=== PATIENT | female | born 1980 | race Hispanic/Latino ===

== ENCOUNTER 2016-07-01 17:47 | Emergency (ER) | payer OTHER ==
[2016-07-01] MEDS ORDERED: Lorazepam 0.5 MG TAB ONE (18:02)
[2016-07-01] MEDS ORDERED: Ondansetron ODT 4 MG TAB ONE (18:02)
[2016-07-01 18:32] LABS: #Eosinphils 0.2 thou/uL (0.0-0.7); #Lymphocytes 1.4 thou/uL (1.20-3.40); #Monocytes 0.3 thou/uL (0.11-0.59); #Neutrophils 4.6 thou/uL (1.40-6.50); %Basophils 0.6 % (0.0-1.0); %Eosinophils 2.7 % (0.0-10.0); %Monocytes 4.4 % (0.0-10.0); Red Blood Cell (RBC) Count 4.55 mill/uL (4.20-5.40); White Blood Cell (WBC) Count 6.5 thou/uL (4.8-10.8)
[2016-07-01 18:44] LABS: ALT (SGPT) 46 U/L (0-55); AST (SGOT) 30 U/L (5-34); Alkaline Phosphatase 63 U/L (40-150); Anion Gap 14 mmol/L (10-20); BUN (Urea Nitrogen) 8 mg/dL (7.0-18.7); Bilirubin, Total 0.2 mg/dL (0.2-1.2); Calc. Creatinine Clearance 0 mL/min (70-130); Calcium 8.8 mg/dL (7.8-10.44); Carbon Dioxide 23 mmol/L (22-29); Chloride 105 mmol/L (98-107); Estimated GFR-MDRD 78; Globulin 2.9 g/dL (2.4-3.5); Protein, Total 6.9 g/dL (6.0-8.3)
[2016-07-01 18:46] LABS: Troponin I 0.014 ng/mL (< 0.028)
[2016-07-01] MEDS ORDERED: AMOXicillin 250 MG CAP ONE (19:14)
--- NOTE | 2016-07-01 22:31 | RAD ---
PORTABLE CHEST 07/01/16 An AP portable film at 1809 is compared with an 03/06/16 study. The heart size is unchanged. The leon gs are clear. There is no congestive change or pleural effusion. The trachea is midline. IMPRESSION: No acute thoracic finding. POS: HOME
== END 2016-07-01 19:18 | disposition home or self-care (01) ==
LOC: BURERS 17:47
DX: K29.70 Gastritis, unspecified, without bleeding (principal); E78.5 Hyperlipidemia, unspecified; F32.9 Major depressive disorder, single episode, unspecified; F17.210 Nicotine dependence, cigarettes, uncomplicated
CPT/HCPCS: 71010; 80053; 82553; 84484; 85025; 85379; 93005; Q0162

== ENCOUNTER 2016-12-10 19:10 | Emergency (ER) | payer OTHER ==
--- NOTE | 2016-12-10 22:52 | RAD ---
RIGHT FOOT THREE VIEWS 12/10/2016 An oblique fracture through the proximal phalanx of the 5th toe is seen. The remainder of the foot appears intact. No periosteal reaction was seen elsewhere. The medial sesamoid of the first MTP patricia int is bipartite, a common variant. IMPRESSION: Nondisplaced oblique fracture of the proximal phalanx of the 5th toe. Code T. POS: HOME
== END 2016-12-10 20:05 | disposition home or self-care (01) ==
LOC: BURERS 19:10
DX: S92.514A Nondisplaced fracture of proximal phalanx of right lesser toe(s), initial encounter for closed fracture (principal); E78.5 Hyperlipidemia, unspecified; F32.9 Major depressive disorder, single episode, unspecified; F41.9 Anxiety disorder, unspecified; F42.9 Obsessive-compulsive disorder, unspecified; F17.210 Nicotine dependence, cigarettes, uncomplicated; W17.2XXA Fall into hole, initial encounter

== ENCOUNTER 2016-12-18 13:18 | Outpatient (CLI) | payer OTHER ==
--- NOTE | 2016-12-18 16:15 | RAD ---
RIGHT FOOT THREE VIEWS: Date: 12-18-16 Comparison: 12-10-16 FINDINGS: The oblique fracture of the proximal phalanx of the little toe is again noted. There has been little pattern changer the interval. There is no change in alignment. No new fractures were seen. IMPRESSION: Little change since 12-10. POS: HOME
== END 2016-12-18 13:19 | disposition home or self-care (01) ==
LOC: BURRAD 13:18
PROVIDERS: ATTEND Family Medicine
DX: S92.514D Nondisplaced fracture of proximal phalanx of right lesser toe(s), subsequent encounter for fracture with routine healing (principal)

== ENCOUNTER 2017-01-15 15:33 | Emergency (ER) | payer OTHER ==
[2017-01-15] MEDS ORDERED: Bacitracin Zinc 1 Packet ONE (15:51)
== END 2017-01-15 16:25 | disposition home or self-care (01) ==
LOC: BURERS 15:33
DX: S61.012A Laceration without foreign body of left thumb without damage to nail, initial encounter (principal); S61.511A Laceration without foreign body of right wrist, initial encounter; E78.2 Mixed hyperlipidemia; F32.9 Major depressive disorder, single episode, unspecified; F41.9 Anxiety disorder, unspecified; F17.210 Nicotine dependence, cigarettes, uncomplicated; Z79.899 Other long term (current) drug therapy; W25.XXXA Contact with sharp glass, initial encounter; Y93.G1 Activity, food preparation and clean up; Y99.0 Civilian activity done for income or pay
CPT/HCPCS: 12001; 90471

== ENCOUNTER 2017-01-28 18:16 | Emergency (ER) | payer OTHER ==
[2017-01-28] MEDS ORDERED: Fluorescein Opthalmic Strip ONE (18:22)
[2017-01-28] MEDS ORDERED: HYDROcodone/Acetaminophen 10/325 mg Tablet ONE (18:57)
== END 2017-01-28 19:26 | disposition home or self-care (01) ==
LOC: BURERS 18:16
DX: Z77.098 Contact with and (suspected) exposure to other hazardous, chiefly nonmedicinal, chemicals (principal); H02.842 Edema of right lower eyelid; H02.841 Edema of right upper eyelid; E78.1 Pure hyperglyceridemia; F17.210 Nicotine dependence, cigarettes, uncomplicated; Z79.899 Other long term (current) drug therapy
CPT/HCPCS: 99283

== ENCOUNTER 2017-04-30 12:38 | Emergency (ER) | payer OTHER, SELFPAY ==
[2017-04-30] MEDS ORDERED: Acetaminophen 500 MG TAB ONE (13:38)
[2017-04-30] MEDS ORDERED: Benzonatate 100 MG CAP ONE (13:38)
[2017-04-30] MEDS ORDERED: Oseltamivir 75 MG CAP ONE (13:38)
== END 2017-04-30 13:49 | disposition home or self-care (01) ==
LOC: BURERS 12:38
DX: J11.1 Influenza due to unidentified influenza virus with other respiratory manifestations (principal); E78.5 Hyperlipidemia, unspecified; F42.9 Obsessive-compulsive disorder, unspecified; F41.9 Anxiety disorder, unspecified; F32.9 Major depressive disorder, single episode, unspecified; F17.210 Nicotine dependence, cigarettes, uncomplicated; Z79.899 Other long term (current) drug therapy
CPT/HCPCS: 99283

== ENCOUNTER 2017-05-18 18:26 | Emergency (ER) | payer SELFPAY ==
[2017-05-18] MEDS ORDERED: Lorazepam 2 MG/ML VIAL ONE (18:59)
== END 2017-05-18 19:22 | disposition home or self-care (01) ==
LOC: BURERS 18:26
DX: F41.9 Anxiety disorder, unspecified (principal); E78.5 Hyperlipidemia, unspecified; H92.03 Otalgia, bilateral; E11.9 Type 2 diabetes mellitus without complications; F17.210 Nicotine dependence, cigarettes, uncomplicated; Z79.899 Other long term (current) drug therapy
CPT/HCPCS: 96372; J2060

== ENCOUNTER 2018-05-01 05:43 | Emergency (ER) | payer SELFPAY ==
[2018-05-01] MEDS ORDERED: Nitroglycerin 0.4 MG TAB (25 Tab Bottle) ONE (06:31)
[2018-05-01] MEDS ORDERED: Ondansetron PF 4 MG/2 ML Vial ONE ×2 (06:31→06:53)
[2018-05-01 06:42] LABS: Albumin 4.3 g/dL (3.5-5.0); Chloride 87 mmol/L (98-107); Sodium 121 mmol/L (136-145)
[2018-05-01 06:46] LABS: #Eosinphils 0.1 thou/uL (0.0-0.7); #Lymphocytes 1.1 thou/uL (1.20-3.40); #Monocytes 0.3 thou/uL (0.11-0.59); #Neutrophils 4.5 thou/uL (1.40-6.50); %Basophils 0.6 % (0.0-1.0); %Eosinophils 1.8 % (0.0-10.0); %Lymphocytes 18.5 % (21.0-51.0); %Monocytes 4.4 % (0.0-10.0); %Neutrophils 74.6 % (42.0-75.0); Hemoglobin 14.4 g/dL (12.0-16.0); Mean Corpuscular HGB CONC 37.5 g/dL (32.0-36.0); Mean Corpuscular Hemoglobin 32.2 pg (27.0-31.0); Mean Corpuscular Volume 85.8 fL (78.0-98.0); Mean Platelet Volume 5.9 fL (7.4-10.4); Platelet Count 235 thou/uL (130-400); RBC Distribution Width 13.4 % (11.5-14.5); Red Blood Cell (RBC) Count 4.47 mill/uL (4.20-5.40)
[2018-05-01 06:47] LABS: MDiff Complete? YES; Manual Diff?? YES
[2018-05-01 06:56] LABS: ALT (SGPT) 38 U/L (8-55)
[2018-05-01] MEDS ORDERED: Promethazine HCl 25 MG/ML VIAL ONE (07:10)
[2018-05-01 07:12] LABS: BUN (Urea Nitrogen) Less than 20 mg/dL (7.0-18.7); CK (CPK) Less than 90 U/L (29-168); Glucose 251 mg/dL (70-105)
[2018-05-01 07:22] LABS: Alkaline Phosphatase 82 U/L (40-150)
[2018-05-01 07:40] LABS: Calc. Creatinine Clearance 0 mL/min (70-130); Carbon Dioxide 21 mmol/L (22-29); Estimated GFR-MDRD 80
[2018-05-01 07:45] LABS: AST (SGOT) Less than 15 U/L (5-34)
[2018-05-01 07:47] LABS: Globulin 7.7 g/dL (2.4-3.5); Protein, Total Greater than 12.0 g/dL (6.0-8.3)
[2018-05-01 07:48] LABS: Lipase 924 U/L (8-78)
[2018-05-01 07:49] LABS: Anion Gap 16 mmol/L (10-20)
--- NOTE | 2018-05-01 09:53 | RAD ---
PORTABLE CHEST: Date: 05/01/18 An AP portable film at 0603 hours is compared with the 07/01/16 study. The film is taken in expiration. Allowing for this, the heart is normal in size and the lungs are elvi ar. There is no congestion or pleural fluid seen. IMPRESSION: No acute thoracic findings. POS: HOME
== END 2018-05-01 07:32 | disposition short-term general hospital (02) ==
LOC: BURERS 05:43
DX: R07.9 Chest pain, unspecified (principal); R11.2 Nausea with vomiting, unspecified; E78.5 Hyperlipidemia, unspecified; E11.9 Type 2 diabetes mellitus without complications; F17.210 Nicotine dependence, cigarettes, uncomplicated; Z79.899 Other long term (current) drug therapy; Z79.84 Long term (current) use of oral hypoglycemic drugs
CPT/HCPCS: 71045; 80053; 82465; 82550; 83690; 84478; 84484; 85025; 93005; 94760; 96365; 96375; J2405; J2550

== ENCOUNTER 2021-08-20 19:44 | Emergency (ER) | payer SELFPAY ==
[2021-08-20] MEDS ORDERED: Mag-Al Plus 1200 MG/1200 MG/120 MG/30 ML UDCUP ONE (20:34)
[2021-08-20] MEDS ORDERED: Lidocaine Viscous Sol 2% 15 ml UD Cup ONE (20:34)
[2021-08-20] MEDS ORDERED: Lorazepam 0.5 MG TAB ONE (20:34)
== END 2021-08-20 21:55 | disposition home or self-care (01) ==
LOC: BURERS 19:44
DX: K21.9 Gastro-esophageal reflux disease without esophagitis (principal); F41.9 Anxiety disorder, unspecified; E11.42 Type 2 diabetes mellitus with diabetic polyneuropathy; I10 Essential (primary) hypertension; E78.5 Hyperlipidemia, unspecified; E78.00 Pure hypercholesterolemia, unspecified; M19.90 Unspecified osteoarthritis, unspecified site; E66.9 Obesity, unspecified; F17.200 Nicotine dependence, unspecified, uncomplicated
CPT/HCPCS: 71045; 93005

== ENCOUNTER 2022-02-26 23:26 | Emergency (ER) | payer OTHER, SELFPAY ==
[2022-02-26] MEDS ORDERED: Bupivacaine 0.5% 10 ML VIAL ONE (23:37)
[2022-02-26] MEDS ORDERED: Boostrix 0.5 ML (Tdap) VIAL (>/=7 yrs of age) ONE (23:40)
[2022-02-26] MEDS ORDERED: Bacitracin 1 PK ONE (23:53)
[2022-02-27] MEDS ORDERED: Amoxicillin/Potassium Clav 875 MG TAB ONE (00:07)
== END 2022-02-27 00:10 | disposition home or self-care (01) ==
LOC: BURERS 23:26
DX: S61.253A Open bite of left middle finger without damage to nail, initial encounter (principal); E78.5 Hyperlipidemia, unspecified; E78.00 Pure hypercholesterolemia, unspecified; I10 Essential (primary) hypertension; E11.40 Type 2 diabetes mellitus with diabetic neuropathy, unspecified; K21.9 Gastro-esophageal reflux disease without esophagitis; Z79.4 Long term (current) use of insulin; Z79.899 Other long term (current) drug therapy; Z23 Encounter for immunization; W54.0XXA Bitten by dog, initial encounter
CPT/HCPCS: 26010; 90471; 90715; J3490

== ENCOUNTER 2022-02-27 12:41 | Emergency (ER) | payer OTHER, SELFPAY ==
[2022-02-27] MEDS ORDERED: Bupivacaine 0.5% 10 ML VIAL ONE (13:14)
[2022-02-27] MEDS ORDERED: Morphine 4 MG/ML VIAL ONE (13:16)
[2022-02-27 13:49] LABS: #Basophils 0.1 thou/uL (0.0-0.2); #Eosinphils 0.2 thou/uL (0.0-0.7); #Lymphocytes 1.3 thou/uL (1.20-3.40); #Monocytes 0.3 thou/uL (0.11-0.59); #Neutrophils 4.9 thou/uL (1.40-6.50); %Eosinophils 3.5 % (0.0-10.0); %Lymphocytes 19.4 % (21.0-51.0); %Neutrophils 71.2 % (42.0-75.0); Hemoglobin 15.2 g/dL (12.0-16.0); Mean Corpuscular HGB CONC 34.8 g/dL (32.0-36.0); Mean Corpuscular Hemoglobin 31.1 pg (27.0-31.0); Mean Corpuscular Volume 89.3 fl (78.0-98.0); Mean Platelet Volume 8.1 fL (7.4-10.4); Platelet Count 269 thou/uL (130-400); RBC Distribution Width 12.9 % (11.5-14.5); Red Blood Cell (RBC) Count 4.89 mill/uL (4.20-5.40); White Blood Cell (WBC) Count 6.8 thou/uL (4.8-10.8)
[2022-02-27 13:59] LABS: Base Excess-Venous 0.3 mmol/L (-2.0 to 3.0); Bicarbonate (HCO3v) 24.9 mmol/L (22.0-28.0); CO2 Tension (PvCO2) 39.4 mmHg (42.0-51.0); Calcium, Ionized 1.15 mmol/L (1.15-1.33); Chloride 98 mmol/L (98-107); Hemoglobin - Calc 14.3 g/dL (12.0-16.0); Sodium 133 mmol/L (138-145); T. Carbon Dioxide 26.1 mmol/L (22.0-28.0); vO2 Saturation-calc 90.3 % (60.0-85.0)
[2022-02-27 14:18] LABS: BUN (Urea Nitrogen) 11 mg/dL (7.0-18.7); Bilirubin, Total 0.2 mg/dL (0.2-1.2); Calc. Creatinine Clearance 0 mL/min (70-130); Calcium 9.6 mg/dL (7.8-10.44); Carbon Dioxide 22 mmol/L (22-29); Chloride 98 mmol/L (98-107); Estimated GFR 92; Glucose 363 mg/dL (70-105); Sodium 132 mmol/L (136-145)
[2022-02-27 14:19] LABS: ALT (SGPT) 38 U/L (8-55); Albumin 3.9 g/dL (3.5-5.0); Alkaline Phosphatase 147 U/L (40-110)
[2022-02-27 14:52] LABS: Bilirubin Negative (Negative); Blood, Urine Negative (Negative); Clarity Clear (Clear); Glucose, Urine (Dipstick) 500 mg/dL (Negative); Ketone, Urine Negative (Negative); Leukocyte Negative (Negative); Nitrite Negative (Negative); Protein, Urine (Dipstick) Negative (Neg-Trace); Urobilinogen 0.2 mg/dL (Less than 2); pH, Urine 6.5 (5.0-9.0)
[2022-02-27 14:52] LABS: AST (SGOT) 13 U/L (5-34); Globulin 2.8 g/dL (2.4-3.5); Magnesium 1.4 mg/dL (1.6-2.6); Potassium 4.2 mmol/L (3.5-5.1); Protein, Total 6.7 g/dL (6.0-8.3)
[2022-02-27 14:58] LABS: Anion Gap 17 mmol/L (10-20)
== END 2022-02-27 15:24 | disposition home or self-care (01) ==
LOC: BURERS 12:41
DX: S61.254A Open bite of right ring finger without damage to nail, initial encounter (principal); E11.65 Type 2 diabetes mellitus with hyperglycemia; I10 Essential (primary) hypertension; K21.9 Gastro-esophageal reflux disease without esophagitis; E66.9 Obesity, unspecified; E11.42 Type 2 diabetes mellitus with diabetic polyneuropathy; F17.200 Nicotine dependence, unspecified, uncomplicated; W54.0XXA Bitten by dog, initial encounter; Z79.4 Long term (current) use of insulin; Z79.84 Long term (current) use of oral hypoglycemic drugs; Z79.899 Other long term (current) drug therapy
CPT/HCPCS: 36416; 80053; 81003; 82330; 82803; 83735; 85014; 85025; 96360; 96372; J2270; J3490

== ENCOUNTER 2024-03-13 20:54 | Emergency (ER) | payer OTHER ==
[2024-03-13] MEDS ORDERED: Amoxicillin/Potassium Clav 875 MG TAB ONE (21:17)
[2024-03-13] MEDS ORDERED: HYDROcodone/Acetaminophen 5/325 mg Tablet ONE (21:17)
== END 2024-03-13 21:29 | disposition home or self-care (01) ==
LOC: BURERS 20:54
DX: K02.9 Dental caries, unspecified (principal); E11.9 Type 2 diabetes mellitus without complications; F17.200 Nicotine dependence, unspecified, uncomplicated; Z55.6 Problems related to health literacy
CPT/HCPCS: 99282

== ENCOUNTER 2024-06-27 02:31 | Emergency (ER) | payer OTHER ==
[2024-06-27] MEDS ORDERED: Sucralfate 1 GM TAB ONE (02:53)
[2024-06-27] MEDS ORDERED: Promethazine HCl 25 MG/ML VIAL ONE ×2 (02:53→04:02)
[2024-06-27] MEDS ORDERED: Ondansetron PF 4 MG/2 ML Vial ONE (03:23)
[2024-06-27 03:33] LABS: Bilirubin Negative (Negative); Blood, Urine Small (Negative); Glucose, Urine (Dipstick) Negative (Negative); Ketone, Urine Trace mg/dL (Negative); Leukocyte Negative (Negative); Nitrite Negative (Negative); Protein, Urine (Dipstick) 30 mg/dL (Neg-Trace); Urobilinogen 0.2 mg/dL (Less than 2); pH, Urine 5.5 (5.0-9.0)
[2024-06-27 03:34] LABS: Eosinophils 2 % (0-10); Hematocrit 39.4 % (36.0-47.0); Hemoglobin 13.5 g/dL (12.0-16.0); Lymphocytes 8 % (21-51); MDiff Complete? YES; Mean Corpuscular HGB CONC 34.3 g/dL (32.0-36.0); Mean Corpuscular Hemoglobin 27.1 pg (27.0-31.0); Mean Platelet Volume 5.6 fL (7.4-10.4); Monocytes 2 % (0-10); Neutrophil 88 % (42-75); Platelet Count 406 10x3/uL (130-400); RBC Distribution Width 11.5 % (11.5-14.5); Red Blood Cell (RBC) Count 4.99 mill/uL (4.20-5.40); White Blood Cell (WBC) Count 6.2 10x3/uL (4.8-10.8)
[2024-06-27 03:39] LABS: ALT (SGPT) 43 U/L (Less than 34); AST (SGOT) 27 U/L (11-34); Albumin 4.6 g/dL (3.1-4.5); Alkaline Phosphatase 52 U/L (40-110); Anion Gap 17 mmol/L (10-20); BUN (Urea Nitrogen) 15 mg/dL (7.0-18.7); Bilirubin, Total 0.2 mg/dL (0.3-1.2); Calc. Creatinine Clearance 0 mL/min (70-130); Carbon Dioxide 26 mmol/L (22-29); Chloride 101 mmol/L (98-107); Estimated GFR 66; Globulin 3.4 g/dL (2.4-3.5); Glucose 115 mg/dL (70-105); Lipase 260 U/L (8-78); Potassium 3.7 mmol/L (3.5-5.1); Sodium 140 mmol/L (136-145)
[2024-06-27 03:44] LABS: Clarity Hazy (Clear)
[2024-06-27 03:45] LABS: Bacteria/HPF 1+ HPF (None Seen); CAUTI Indications for Culture Pelvic or flank pain; RBC/HPF None Seen HPF (0-3); WBC/HPF 0-3 HPF (0-3)
[2024-06-27 03:45] LABS: Pregnancy Test - Urine (BHCG) Negative (Negative); Pregu Control Background? CLEAR/WHITE (CLR/WHITE); Pregu Control Bar Appear? YES (CONTROL BAR)
[2024-06-27 03:46] LABS: Urine Culture Reflex No No
[2024-06-27 03:49] LABS: Calcium 9.7 mg/dL (7.6-10.4)
[2024-06-27 03:49] LABS: Amphetamine Not Detected (NotDetected); Barbiturates Screen Not Detected (NotDetected); Benzodiazepine Screen Not Detected (NotDetected); Cocaine Metabolite Screen Not Detected (NotDetected); Methadone Not Detected (NotDetected); Methamphetamine Not Detected (NotDetected); Opiate Screen Not Detected (NotDetected); Oxycodone Screen Not Detected (NotDetected); Phencyclidine (PCP) Not Detected (NotDetected); THC/Cannabinoid Screen Not Detected (NotDetected); Tricyclic Screen Not Detected (NotDetected)
== END 2024-06-27 05:13 | disposition home or self-care (01) ==
LOC: BURERS 02:31
DX: K85.90 Acute pancreatitis without necrosis or infection, unspecified (principal); E78.00 Pure hypercholesterolemia, unspecified; I10 Essential (primary) hypertension; E11.42 Type 2 diabetes mellitus with diabetic polyneuropathy; F17.200 Nicotine dependence, unspecified, uncomplicated; Z79.84 Long term (current) use of oral hypoglycemic drugs; Z79.4 Long term (current) use of insulin; Z79.899 Other long term (current) drug therapy
CPT/HCPCS: 36415; 51702; 80053; 80306; 81001; 81025; 83690; 85025; 96361; 96365; 96375; 96376; J2405; J2550